=== PATIENT | male | born 1990 | race Caucasian/White ===

== ENCOUNTER 2017-04-07 16:46 | Emergency (ER) | payer OTHER ==
[~2017-04-07] VITALS: Ht 182.9 cm; Wt 80.0 kg
[~2017-04-07 16:46] MED LIST: SULF1TAB47 PO; Z.0.NO CURRENT MEDS
[2017-04-07 17:15] VITALS: PULSE 93; RESP 25; TEMP 99.9; O2SAT 97
[2017-04-07] MEDS ORDERED: XANA2TAB2 PO (17:29)
[2017-04-07] MEDS ORDERED: LISI-519 PO (17:29)
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
[2017-04-07 19:26] VITALS: BP 126/62; PULSE 74; RESP 18; TEMP 98.9; O2SAT 97
[2017-04-21] MEDS ORDERED: TRAM50TA PO (01:23)
[2017-04-21] MEDS ORDERED: LORA-474 PO (06:34)
[2017-04-21] MEDS ORDERED: ZOFR4TAB3 SL (06:34)
[2017-04-24] MEDS ORDERED: CEPH-460 PO (03:00)
[2017-04-24] MEDS ORDERED: NAPR500 PO (03:00)
[2017-04-25] MEDS ORDERED: CLON0.1T PO (00:24)
[2017-04-25] MEDS ORDERED: CELE50CA PO (00:24)
== END 2017-04-07 20:34 | disposition home or self-care (01) ==
LOC: NEPD 16:46 → NEPB 20:34
DX: F43.25 Adjustment disorder with mixed disturbance of emotions and conduct (principal); F41.9 Anxiety disorder, unspecified; Z72.0 Tobacco use
CPT/HCPCS: 80307